=== PATIENT | female | born 1960 | race Caucasian/White ===

== ENCOUNTER → 2017-07-27 | Outpatient (CLI) | payer BC ==
--- NOTE | 2017-07-28 14:35 | XR ---
EXAMINATION TYPE: XR shoulder complete RT DATE OF EXAM: 07/27/2017 CLINICAL HISTORY: Right shoulder pain TECHNIQUE: Three views of the right shoulder are obtained. COMPARISON: None. FINDINGS: There is no acute fracture/dislocation evident in the right shoulder. Moderate acromioclav icular arthropathy is seen as marginal osteophytes and capsular hypertrophy. Mild glenohumeral arthro markus is also seen as joint space narrowing and small marginal osteophytes. The visualized ribs are intact and unremarkable. Visualized right lung is well aerated. IMPRESSION: 1. There is no acute fracture or dislocation in the right shoulder. 2. Moderate acromioclavicular arthropathy and mild glenohumeral arthropathy.
== END | disposition home or self-care (01) ==
LOC: RADXRYALE 09:58
PROVIDERS: ATTEND Physician Assistant Medical
DX: M12.9 Arthropathy, unspecified (principal)

== ENCOUNTER → 2019-11-04 | Outpatient (CLI) | payer BC ==
--- NOTE | 2019-11-04 14:50 | XR ---
EXAMINATION TYPE: XR knee complete RT DATE OF EXAM: 11/04/2019 CLINICAL HISTORY: pain TECHNIQUE: Three views of the right knee are obtained. COMPARISON: None. FINDINGS: There is no acute fracture/dislocation. The tri-compartment joint spaces appear within no rmal limits. The overlying soft tissue appears unremarkable. IMPRESSION: There is no acute fracture or dislocation.ICD 10 NO FRACTURE, INITIAL EVALUATION
== END | disposition home or self-care (01) ==
LOC: RADXRYALE 14:18
PROVIDERS: ATTEND Physician Assistant Medical
DX: M25.561 Pain in right knee (principal)

== ENCOUNTER → 2020-01-30 | Outpatient (CLI) | payer BC ==
--- NOTE | 2020-01-31 15:04 | MM ---
Reason for exam: screening (asymptomatic). Last mammogram was performed 1 year and 1 month ago. History: Patient is postmenopausal. Took hormonal contraceptives for 2 years. Physical Findings: A clinical breast exam by your physician is recommended on an annual basis and results should be correlated with mammographic findings. MG 3D Screening Mammo W/Cad Bilateral CC and MLO view(s) were taken. Prior study comparison: January 02, 2019, bilateral MG 3d screening mammo w/cad. February 16, 2016, bilateral MG screening mammo w CAD. The breast tissue is heterogeneously dense. This may lower the sensitivity of mammography. No significant changes when compared with prior studies. ASSESSMENT: Benign, BI-RAD 2 RECOMMENDATION: Routine screening mammogram of both breasts in 1 year.
== END | disposition home or self-care (01) ==
LOC: RADMAMWWP 08:01
PROVIDERS: ATTEND Family Medicine
DX: Z12.31 Encounter for screening mammogram for malignant neoplasm of breast (principal)
CPT/HCPCS: 77063; 77067

== ENCOUNTER → 2020-02-04 | Outpatient (CLI) | payer BC ==
--- NOTE | 2020-02-04 15:10 | EST ---
EXERCISE STRESS AGE: 59 SEX: F HT: 65" WT: 220 PROTOCOL: Carmelo STAGE: 3 DURATION OF EXERCISE: 8:15 HEART RATE REST: 78 BLOOD PRESSURE REST: 138/91 MAXIMUM HEART RATE ACHIEVED: 155 MAXIMUM BLOOD PRESSURE: 162/85 85% MPHR: 138 100% MPHR: 162 METS: 9.9 INDICATIONS: History of abnormal ECG. CLINICAL INFORMATION: Baseline heart rate 78 beats per minute. Baseline blood pressure 138/91 mmHg. Baseline 12-lead ECG shows sinus rhythm, normal VR, incomplete right bundle branch block pattern with T-wave inversions in V1 through V3. The patient exercised on a Carmelo protocol for 8 minutes 15 seconds achieving a peak heart rate of 150 beats per minute. Peak blood pressure 162/85 mmHg. She was short of breath by peak exercise. Occasional PVCs were noted. Downsloping ST depression of 2 mm was noted. Occasional PVCs were noted. IMPRESSION: 1. Abnormal stress test with associated shortness of breath. 2. Downsloping ST depression of up to 2 mm during peak exercise. MMODL / IJN: [id number] /
== END | disposition home or self-care (01) ==
LOC: RADNMMAIN 08:28
PROVIDERS: ATTEND Family Medicine
DX: R94.31 Abnormal electrocardiogram [ECG] [EKG] (principal); E78.2 Mixed hyperlipidemia; E66.9 Obesity, unspecified
CPT/HCPCS: 93017

== ENCOUNTER → 2021-04-28 | Outpatient (CLI) | payer BC ==
[2021-04-28 08:13] VITALS: BP 150/86; PULSE 87; RESP 18; TEMP 98.1
--- NOTE | 2021-04-28 08:53 | P.HPOB ---
History of Present Illness H&P Date: 04/28/21 Chief Complaint: The patient is here for her routine gynecologic exam and ma mmogram. This is a 60-year-old with an LMP of 2017. The patient is without gynecologic complaints and denies any postmenopausal bleeding. Review of Systems She has gained about 9 pounds over the past 2 years. She states more recently she has lost about 8 pounds. She denies respiratory, cardiac, or GI problems. 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 History of Any Multi-Drug Resistant Organisms: None Reported Additional Past Surgical History / Comment(s): Colonoscopy 2011(next due in 10 yrs) Past Psychological History: No Psychological Hx Reported Smoking Status: Former smoker Past Alcohol Use History: Occasional (About 10 per week) Additional Past Alcohol Use History / Comment(s): Quit smoking in 1987. 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 - Past Family History Mother Family Medical History: Cancer Additional Family Medical History / Comment(s): Lung cancer. Father Family Medical History: CVA/TIA, Diabetes Mellitus Medications and Allergies Home Medications Medication Instructions Recorded Confirmed Type Cholecalciferol [Vitamin D3 (25 25 mcg PO DAILY 04/28/21 04/28/21 History Mcg = 1000 Iu)] Allergies Allergy/AdvReac Type Severity Reaction Status Date / Time No Known Allergies Allergy Unverified 04/28/21 08:06 Exam Vital Signs Temp Pulse Resp BP Pulse Ox 04/28/21 08:07 98.1 F 87 18 150/86 97 Intake and Output 04/27/21 04/28/21 04/28/21 22:59 06:59 14:59 Other: Weight 103.419 kg Height 5 feet 5 inches, weight 228 pounds, BMI 37.9. This is a well-developed well-nourished heavyset white female who is alert and oriented times 3 in no acute distress. HEENT: Within normal limits. NECK: Supple without mass or thyromegaly. CHEST AND LUNGS: Clear to auscultation. HEART: Regular rate and rhythm. BREASTS: Are without mass or discharge. AXILLARY EXAM: Negative for adenopathy. BACK: Negative for CVA tenderness. ABDOMEN: Soft, nontender, without palpable masses. PELVIC EXAM: Normal external genitalia with mild atrophy. Cervix and vagina appear normal with mild atrophy. There is no unusual discharge. There is no evidence of prolapse. The uterus is midposition, nongravid size and nontender. There are no palpable adnexal masses or tenderness. Bimanual examination is somewhat limited secondary to her size. RECTAL EXAM: Rectovaginal exam is negative for mass or tenderness and is negative for occult blood. EXTREMITIES: Nontender. IMPRESSION: 1. 60-year-old menopausal female with normal gynecologic exam. 2. Elevated blood pressure. PLAN: 1. Pap smear cotest was performed. 2. Self breast awareness was discussed with the patient. We have also discussed symptoms associated with inflammatory breast cancer. 3. Screening mammogram will be done today. 4. Her blood pressure was discussed and I recommended that she check her own blood pressure on a daily basis. She will follow up with her PCP for blood pressure elevations. 5. Osteoporosis prevention was discussed. I have stressed the importance of adequate calcium, vitamin D and regular exercise. Recommended amounts of calcium and vitamin D were also discussed. I have recommended bone density testing at age 61. She can do this at her next annual well woman visit. 6. She was advised to return in one year for her annual well woman exam.
--- NOTE | 2021-04-29 11:37 | MM ---
Reason for exam: screening (asymptomatic). Last mammogram was performed 1 year and 3 months ago. History: Patient is postmenopausal. Took hormonal contraceptives for 2 years. Physical Findings: A clinical breast exam by your physician is recommended on an annual basis and results should be correlated with mammographic findings. MG 3D Screening Mammo W/Cad Bilateral CC and MLO view(s) were taken. XCCL view(s) were taken of the right breast. Prior study comparison: January 30, 2020, bilateral MG 3d screening mammo w/cad. January 02, 2019, bilateral MG 3d screening mammo w/cad. The breast tissue is heterogeneously dense. This may lower the sensitivity of mammography. There is no discrete abnormality. No significant changes when compared with prior studies. ASSESSMENT: Negative, BI-RAD 1 RECOMMENDATION: Routine screening mammogram of both breasts in 1 year.
== END | disposition home or self-care (01) ==
LOC: RADMAMWWP 07:52
PROVIDERS: ATTEND Obstetrics & Gynecology
DX: Z12.31 Encounter for screening mammogram for malignant neoplasm of breast (principal); Z78.0 Asymptomatic menopausal state
CPT/HCPCS: 77063; 77067

== ENCOUNTER → 2022-05-18 | Outpatient (CLI) | payer BC ==
[2022-05-18 08:01] VITALS: BP 144/85; PULSE 78; RESP 17; TEMP 97.9
--- NOTE | 2022-05-18 08:29 | P.HPOB ---
History of Present Illness H&P Date: 05/18/22 Chief Complaint: The patient is here for her routine gynecologic exam and ma mmogram. This is a 61-year-old with an LMP of 2017. The patient is without gynecologic complaints and denies any postmenopausal bleeding. Review of Systems The patient's weight has been stable over the last year. She denies respiratory, cardiac, or G.I. problems. 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 History of Any Multi-Drug Resistant Organisms: None Reported Additional Past Surgical History / Comment(s): Colonoscopy 2011(next due in 10 yrs) Past Psychological History: No Psychological Hx Reported Smoking Status: Former smoker Past Alcohol Use History: Occasional (About 12 per week) Additional Past Alcohol Use History / Comment(s): Quit smoking in 1987. 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 - Past Family History Mother Family Medical History: Cancer Additional Family Medical History / Comment(s): Lung cancer. Father Family Medical History: CVA/TIA, Diabetes Mellitus Medications and Allergies Home Medications Medication Instructions Recorded Confirmed Type Cholecalciferol [Vitamin D3 (25 25 mcg PO DAILY 04/28/21 05/18/22 History Mcg = 1000 Iu)] Allergies Allergy/AdvReac Type Severity Reaction Status Date / Time No Known Allergies Allergy Unverified 05/18/22 07:56 Exam Vital Signs Temp Pulse Resp BP Pulse Ox 05/18/22 07:56 97.9 F 78 17 144/85 99 Intake and Output 05/17/22 05/18/22 05/18/22 22:59 06:59 14:59 Other: Weight 102.965 kg Height 5 feet 4 inches, weight 227 pounds, BMI 39.0. This is a well-developed well-nourished heavyset white female who is alert and oriented times 3 in no acute distress. HEENT: Within normal limits. NECK: Supple without mass or thyromegaly. CHEST AND LUNGS: Clear to auscultation. HEART: Regular rate and rhythm. BREASTS: Are without mass or discharge. AXILLARY EXAM: Negative for adenopathy. BACK: Negative for CVA tenderness. ABDOMEN: Soft, obese, nontender, without palpable masses. PELVIC EXAM: Normal external genitalia with mild atrophy. Cervix and vagina appear normal with mild atrophy. There is no unusual discharge. There is no evidence of prolapse. The uterus is midposition, nongravid size and nontender. There are no palpable adnexal masses or tenderness. Bimanual examination is somewhat limited secondary to her size. RECTAL EXAM: Rectovaginal exam is negative for mass or tenderness and is negative for occult blood. EXTREMITIES: Nontender. IMPRESSION: 1. 61-year-old menopausal female with normal gynecologic exam. PLAN: 1. Pap smear was deferred since she had a negative Pap smear cotest on 04/28/2021. 2. Self breast awareness was discussed with the patient. We have also discusse d symptoms associated with inflammatory breast cancer. 3. Screening mammogram will be done today. 4. Osteoporosis prevention was discussed. I have stressed the importance of adequate calcium, vitamin D and regular exercise. Recommended amounts of calcium and vitamin D were also discussed. It has been several years since her last bone density test. She believes it was normal. Bone density testing will be done today. 5. She will be due for her colonoscopy since her last one was about 10 years ago. She states she has been discussing this with her PCP and they will help her to schedule it. 6. She has completed her Covid vaccination series and did receive a booster. 7. She was advised to return in one year for her annual well woman exam.
--- NOTE | 2022-05-18 11:24 | BD ---
EXAMINATION TYPE: Axial Bone Density DATE OF EXAM: 05/18/2022 COMPARISON: 03/31/2009 CLINICAL HISTORY: 61 years old Female. ICD-10 CODE: Z78.0 POST MENOPAUSAL Height: 64.5 Weight: 222 FRAX RISK QUESTIONS: Alcohol (3 or more units per day): YES Family History (Parent hip fracture): NO History of Fracture in Adulthood: NO Secondary Osteoporosis: NO Rheumatoid Arthritis: NO Current Tobacco Use: NO RISK FACTORS HISTORY OF: Active: YES Diet low in dairy products/other sources of calcium: NO Postmenopausal woman: YES MEDICATIONS: Additional Medications: NO Additional History: NO EXAM MEASUREMENTS: Bone mineral densitometry was performed using the [employer] System. Bone mineral density as measured about the Lumbar spine is: ----- L1-L4(G/cm2): 1.532 T Score Values are as follows: ----- L1: 2.5 ----- L2: 2.5 ----- L3: 3.6 ----- L4: 2.9 ----- L1-L4: 2.9 Bone mineral density has: Increased 8.2% since study of: 03/31/2009 Bone mineral density about the R hip (g/cm2): 1.162 Bone mineral density about the L hip (g/cm2): 1.203 T Score values are as follows: -----R Neck: 0.7 -----L Neck: 0.3 -----R Total: 1.2 -----L Total: 1.5 Bone mineral density has: Decreased -8.5% since study of: 03/31/2009 FRAX%s: The graph provided illustrates a 5.5% chance for a major osteoporotic fx and a 0.1% chance fo r the hips probability for fx in 10 years time. IMPRESSION: Normal (Values between +1 and -1 indicate normal bone mass). Consider repeating this study in 5 year s or sooner if there is some new clinical indication. NOTE: T-SCORE=SD OF THE YOUNG ADULT MEAN.
--- NOTE | 2022-05-19 18:27 | MM ---
Reason for Exam: Screening (asymptomatic). Last mammogram was performed 1 year(s) and 1 month(s) ago. Patient History: Menarche at age 17. First Full-Term at age 27. Postmenopausal. Patient used Hormonal Contraceptives for 2 years. Risk Values: Evelyn 5 year model risk: 1.5%. NCI Lifetime model risk: 7.4%. Prior Study Comparison: 01/02/2019 Bilateral Screening Mammogram, [facility]. 01/30/2020 Bilateral Screening Mammogram, [facility]. 04/28/2021 Bilateral Screening Mammogram, [facility]. Tissue Density: The breast tissue is heterogeneously dense. This may lower the sensitivity of mammography. Findings: Analyzed By CAD. There is no suspicious group of microcalcifications or new suspicious mass in either breast. Overall Assessment: Negative, BI-RAD 1 Management: Screening Mammogram of both breasts in 1 year. 1. Patient should continue monthly self breast exams. 2. A clinical breast exam by your physician is recommended on an annual basis. 3. This exam should not preclude additional follow-up of suspicious palpable abnormalities. Electronically signed and approved by: César Bryan M.D. Radiologist
== END ==
LOC: WWCWWP 07:42
PROVIDERS: ATTEND Obstetrics & Gynecology
DX: Z01.419 Encounter for gynecological examination (general) (routine) without abnormal findings (principal); Z12.31 Encounter for screening mammogram for malignant neoplasm of breast; Z78.0 Asymptomatic menopausal state; Z87.891 Personal history of nicotine dependence
CPT/HCPCS: 77063; 77067; 77080

== ENCOUNTER → 2023-06-02 | Outpatient (CLI) | payer BC ==
--- NOTE | 2023-06-02 11:04 | XR ---
EXAMINATION TYPE: XR finger LT DATE OF EXAM: 06/02/2023 10:31 AM CLINICAL INDICATION:Female, 62 years old with history of [id number] LT FINGER PAIN; [facility] COMPARISON: None TECHNIQUE: XR finger LT Frontal, lateral views were obtained. FINDINGS: Normal alignment of the visualized joints. No acute osseous pathology is identified. No e vidence of soft tissue swelling. IMPRESSION: No acute osseous pathology.
== END | disposition home or self-care (01) ==
LOC: RADXRYALE 10:16
PROVIDERS: ATTEND Physician Assistant Medical
DX: M79.645 Pain in left finger(s) (principal)

== ENCOUNTER → 2023-06-07 | Outpatient (CLI) | payer BC ==
[2023-06-07 08:20] VITALS: BP 129/78; PULSE 74; RESP 18; TEMP 98.3
--- NOTE | 2023-06-07 08:40 | P.HPOB ---
History of Present Illness H&P Date: 06/07/23 Chief Complaint: The patient is here for her routine gynecologic exam and ma mmogram. This is a 63-year-old with an LMP of 2017. The patient is without gynecologic complaints. Review of Systems Weight has been stable. She denies respiratory or cardiac problems. GI: She states she noticed a small amount of blood after wiping frequently this morning. She has had this issue when she eats Maced[place] sausage. 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 History of Any Multi-Drug Resistant Organisms: None Reported Additional Past Surgical History / Comment(s): Colonoscopy 2011(next due in 10 yrs) Past Psychological History: No Psychological Hx Reported Smoking Status: Former smoker Past Alcohol Use History: Occasional (12 drinks per week.) Additional Past Alcohol Use History / Comment(s): Quit smoking in 1987. 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 - Past Family History Mother Family Medical History: Cancer Additional Family Medical History / Comment(s): Lung cancer. Father Family Medical History: CVA/TIA, Diabetes Mellitus Medications and Allergies Home Medications Medication Instructions Recorded Confirmed Type Cholecalciferol [Vitamin D3 (25 25 mcg PO DAILY 04/28/21 05/18/22 History Mcg = 1000 Iu)] Ibuprofen [Motrin Ib] 200 mg PO Q8H PRN 06/07/23 06/07/23 History Losartan [Cozaar] 50 mg PO BID 06/07/23 06/07/23 History Allergies Allergy/AdvReac Type Severity Reaction Status Date / Time No Known Allergies Allergy Unverified 06/07/23 07:56 Exam Vital Signs Temp Pulse Resp BP Pulse Ox 06/07/23 07:56 98.3 F 74 18 129/78 98 Intake and Output 06/06/23 06/07/23 06/07/23 22:59 06:59 14:59 Other: Weight 103.419 kg Height 5 feet 5-1/2 inches, weight 228 pounds, BMI 37.4. This is a well-developed well-nourished white female who is alert and oriented times 3 in no acute distress. HEENT: Within normal limits. NECK: Supple without mass or thyromegaly. CHEST AND LUNGS: Clear to auscultation. HEART: Regular rate and rhythm. BREASTS: Are without mass or discharge. AXILLARY EXAM: Negative for adenopathy. BACK: Negative for CVA tenderness. ABDOMEN: Soft, obese, nontender, without palpable masses. PELVIC EXAM: Normal external genitalia with mild atrophy. Cervix and vagina appear normal mild atrophy. There is no unusual discharge. There is no evidence of prolapse. The uterus is midposition, nongravid size and nontender. There are no palpable adnexal masses or tenderness. Bimanual examination is somewhat limited secondary to her size. RECTAL EXAM: Rectovaginal exam is negative for mass or tenderness and is positive for occult blood. EXTREMITIES: Nontender. IMPRESSION: 1. 63-year-old menopausal female with normal gynecologic exam. 2. Hemoccult positive stool on exam today. The patient states she noticed some blood when wiping and attributes this to frequent wiping after eating [place] sausage. PLAN: 1. Pap smear was deferred since she had a negative Pap smear cotest on 04/28/2021. 2. Self breast awareness was discussed with the patient. We have also disc ussed symptoms associated with inflammatory breast cancer. 3. Screening mammogram will be done today. 4. Osteoporosis prevention was discussed. I have stressed the importance of adequate calcium, vitamin D and regular exercise. Recommended amounts of calcium and vitamin D were also discussed. She had a normal bone density test on 05/18/2022 we'll plan on repeating it in approximately 2028. 5. The patient states she had a recent negative Cologuard test this year. We will plan on having her repeat the fecal occult blood test on her stool after her bowel movements have gone back to being regular and she has not been wiping as frequently. A fecal occult blood test kit was given to the patient as well as a lab slip for this. She states she will do this. She understands if it is still positive I will recommend a colonoscopy. 6. She was advised to return in one year for her annual well woman exam.
--- NOTE | 2023-06-08 12:37 | MM ---
Reason for Exam: Screening (asymptomatic). Last mammogram was performed 1 year(s) and 1 month(s) ago. Patient History: Menarche at age 17. First Full-Term at age 27. Postmenopausal. Patient used Hormonal Contraceptives for 2 years. Risk Values: Evelyn 5 year model risk: 1.5%. NCI Lifetime model risk: 7.0%. Prior Study Comparison: 01/30/2020 Bilateral Screening Mammogram, [facility]. 04/28/2021 Bilateral Screening Mammogram, [facility]. 05/18/2022 Bilateral MG 3D screening mammo w/cad, [facility]. Tissue Density: The breast tissue is heterogeneously dense. This may lower the sensitivity of mammography. Findings: Analyzed By CAD. There is no suspicious group of microcalcifications or new suspicious mass in either breast. Overall Assessment: Negative, BI-RAD 1 Management: Screening Mammogram of both breasts in 1 year. . Patient should continue monthly self-breast exams. A clinical breast exam by your physician is recommended on an annual basis. This exam should not preclude additional follow-up of suspicious palpable abnormalities. Note on Evelyn scores and lifetime risk: 1. A Evelyn score greater than 3% is considered moderate risk. If this is the case, consider specialist referral to assess eligibility for a risk reducing agent. 2. If overall lifetime risk for the development of breast cancer is 20% or higher, the patient may qualify for future screening with alternating mammogram and breast MRI. Electronically signed and approved by: Ravinder Edwards M.D. Radiologis
== END ==
LOC: WWCWWP 07:44
PROVIDERS: ATTEND Obstetrics & Gynecology
DX: Z12.31 Encounter for screening mammogram for malignant neoplasm of breast (principal); I10 Essential (primary) hypertension; R19.5 Other fecal abnormalities; Z87.891 Personal history of nicotine dependence; Z78.0 Asymptomatic menopausal state; Z79.899 Other long term (current) drug therapy
CPT/HCPCS: 77063; 77067

== ENCOUNTER → 2023-06-12 | Outpatient (CLI) | payer BC | END | disposition home or self-care (01) | LOC: LABWHC1 08:42 | PROVIDERS: ATTEND Obstetrics & Gynecology | DX: R19.5 Other fecal abnormalities (principal) | CPT/HCPCS: 36415; 82272 ==

== ENCOUNTER → 2023-12-07 | Outpatient (CLI) | payer BC ==
--- NOTE | 2023-12-07 14:07 | XR ---
EXAMINATION TYPE: XR ankle complete RT DATE OF EXAM: 12/07/2023 1:34 PM CLINICAL INDICATION:Female, 63 years old with history of [id number] ACHILLES TENDINITIS,FLAT FOOT; Y CH COMPARISON: None TECHNIQUE: XR ankle complete RT; ankle is imaged in frontal, lateral and oblique projections. FINDINGS: There is no evidence of acute osseous pathology. No evidence of subluxation or dislocation. Kager's fat pad is intact. No radiopaque foreign bodies are identified. Calcaneal Achilles enthesophyte. Calc aneal plantar spurring is present. Multifocal degeneration changes throughout the joints of the foot with osteophyte formation and joint space narrowing. IMPRESSION: 1. No evidence of acute fracture. 2. Multifocal degeneration changes throughout the joints of the foot.
== END | disposition home or self-care (01) ==
LOC: RADXRYALE 13:23
PROVIDERS: ATTEND Physician Assistant Medical
DX: M76.61 Achilles tendinitis, right leg (principal); M21.41 Flat foot [pes planus] (acquired), right foot

== ENCOUNTER → 2024-06-11 | Outpatient (CLI) | payer BC ==
[2024-06-11 09:50] VITALS: BP 133/85; PULSE 76; RESP 16; TEMP 98.3
--- NOTE | 2024-06-11 10:18 | P.HPOB ---
History of Present Illness H&P Date: 06/11/24 Chief Complaint: The patient is here for her routine gynecologic exam and ma mmogram. This is a 64-year-old G2, P2 with an LMP of 2017. The patient is without gynecologic complaints. Review of Systems The patient has gained 7 pounds over the last year. She denies respiratory, cardiac, or G.I. problems. Past Medical History Past Medical History: Hypertension Additional Past Medical History / Comment(s): Foot spur. 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 History of Any Multi-Drug Resistant Organisms: None Reported Additional Past Surgical History / Comment(s): Colonoscopy 2011(now using Cologuard testing) Past Psychological History: No Psychological Hx Reported Smoking Status: Former smoker Past Alcohol Use History: Occasional (6-10 drinks per week.) Additional Past Alcohol Use History / Comment(s): Quit smoking in 1987. 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 - Past Family History Mother Family Medical History: Cancer Additional Family Medical History / Comment(s): Lung cancer. Father Family Medical History: CVA/TIA, Diabetes Mellitus Medications and Allergies Home Medications Medication Instructions Recorded Confirmed Type Losartan [Cozaar] 50 mg PO BID 06/07/23 06/11/24 History Allergies Allergy/AdvReac Type Severity Reaction Status Date / Time No Known Allergies Allergy Unverified 06/11/24 09:43 Exam Vital Signs Temp Pulse Resp BP Pulse Ox 06/11/24 09:44 98.3 F 76 16 133/85 97 Intake and Output 06/10/24 06/11/24 06/11/24 22:59 06:59 14:59 Other: Weight 106.594 kg Height 5 feet 5 inches, weight 235 pounds, BMI 39.1. This is a well-developed well-nourished heavyset white female who is alert and oriented times 3 in no acute distress. HEENT: Within normal limits. NECK: Supple without mass or thyromegaly. CHEST AND LUNGS: Clear to auscultation. HEART: Regular rate and rhythm. BREASTS: Are without mass or discharge. AXILLARY EXAM: Negative for adenopathy. BACK: Negative for CVA tenderness. ABDOMEN: Soft, obese, nontender, without palpable masses. PELVIC EXAM: Normal external genitalia with mild atrophy. Cervix and vagina appear normal with mild atrophy. There is no unusual discharge. There is no evidence of prolapse. The uterus is midposition, nongravid size and nontender. There are no palpable adnexal masses or tenderness. Bimanual examination is somewhat limited secondary to her size. RECTAL EXAM: Rectovaginal exam is negative for mass or tenderness and is negative for occult blood. EXTREMITIES: Nontender. IMPRESSION: 1. 64-year-old menopausal female with normal gynecologic exam. PLAN: 1. Pap smear was deferred since she had a negative Pap smear cotest on 04/28/2021. 2. Self breast awareness was discussed with the patient. We have also discussed symptoms associated with inflammatory breast cancer. 3. Screening mammogram will be done today. 4. Osteoporosis prevention was discussed. We will plan on repeating the bone density test in approximately 2027 since she had a normal, above average, bone density test in 2021. 5. She was advised to return in one year for her annual well woman exam.
== END ==
LOC: WWCWWP 09:17
PROVIDERS: ATTEND Obstetrics & Gynecology
DX: Z01.419 Encounter for gynecological examination (general) (routine) without abnormal findings (principal); Z12.31 Encounter for screening mammogram for malignant neoplasm of breast; Z87.891 Personal history of nicotine dependence
CPT/HCPCS: 77063; 77067

== ENCOUNTER 2024-06-21 10:19 | Day surgery (SDC) | payer BC ==
[2024-06-20 09:00] VITALS: BMI 38.2
[2024-06-21] MEDS: ONDANSETRON 4 MG/2 ML VIAL IVP ONE (11:52)
[2024-06-21] MEDS: LACTATED RINGERS 1,000 ML IV SCH (11:52)
[2024-06-21] MEDS: DEXAMETHASONE SOD PHOSPHATE 4 MG/ML 1 ML VIAL IV ONE (11:53)
[2024-06-21] MEDS: IV FLUID CONTINUATION 1,000 ML IV ONE (11:56)
[2024-06-21] MEDS: MIDAZOLAM 2 MG/2 ML VIAL IV PRN (12:59)
[2024-06-21] MEDS: fentaNYL (PF) 50 MCG/ML 2 ML AMP IVP STA (13:00)
[2024-06-21] MEDS ORDERED: fentaNYL (PF) 50 MCG/ML 2 ML AMP ONE (14:27)
[2024-06-21] MEDS ORDERED: PROPOFOL 10 MG/ML 20 ML VIAL IV ONE (14:27)
[2024-06-21] MEDS ORDERED: ROPIVACAINE 5 MG/ML 30 ML VIAL ONE (14:27)
[2024-06-21] MEDS ORDERED: SUCCINYLCHOLINE CHLORIDE 200 MG/10 ML VIAL IV ONE (14:27)
[2024-06-21] MEDS ORDERED: LIDOCAINE 1% INJ 10MG/ML (20 ML MDV) ONE (14:27)
[2024-06-21] MEDS ORDERED: PHENYLEPHRINE-0.9% NACL SYG 1,000 MCG/10 ML SYRINGE ONE (14:27)
[2024-06-21] MEDS ORDERED: SODIUM CHLORIDE 0.9% (PF) 10 ML VIAL ONE (14:27)
[2024-06-21] MEDS ORDERED: NEOSTIGMINE 1 MG/ML 10 ML VIAL ONE (14:27)
[2024-06-21] MEDS ORDERED: HYDROmorphone (PF) 1 MG/ML ONE (14:27)
[2024-06-21] MEDS ORDERED: MIDAZOLAM 2 MG/2 ML VIAL ONE (14:27)
[2024-06-21] MEDS ORDERED: ROCURONIUM 10 MG/ML (5 ML VIAL) IV ONE (14:27)
[2024-06-21] MEDS ORDERED: GLYCOPYRROLATE 0.2 MG/ML 2 ML VIAL ONE (14:27)
[2024-06-21] MEDS: ceFAZolin 1,000 MG in SODIUM CHLORIDE 0.9% 1,000 ML IRRIGATION ONE (14:28)
--- NOTE | 2024-06-21 14:52 | P.ANPRN ---
Procedure Note - Anesthesia - Nerve Block Performed Right Popliteal Single Time Out Performed: Yes (1259) Date of Procedure: 06/21/24 Procedure Start Time: 13:00 Procedure Stop Time: 13:04 Location of Patient: PreOp Indication: Acute Post-Operative Pain, Requested by Surgeon Specifically requested for management of pain by DrDonald: Bob Lea Sedation Type: Sedate with meaningful contact maintained Preparation: Sterile Prep Position: Supine Catheter: None Needle Types: Pajunk Needle Gauge: 21 Ultrasound used to visualize needle placement: Yes Ultrasound used to observe medication spread: Yes Injectate: 0.5% Ropivacaine (see comment for volume) (15cc+10cc nacl pf) Blood Aspirated: No Pain Paresthesia on Injection Noted: No Resistance on Injection: Normal Image Stored and Saved: Yes Events: Uneventful and Well Tolerated
--- NOTE | 2024-06-21 14:53 | P.ANPRN ---
Procedure Note - Anesthesia - Nerve Block Performed Right Adductor Canal Single Time Out Performed: Yes (1259) Date of Procedure: 06/21/24 Procedure Start Time: 13:05 Procedure Stop Time: 13:08 Location of Patient: PreOp Indication: Acute Post-Operative Pain, Requested by Surgeon Specifically requested for management of pain by DrDonald: Bob Lea Sedation Type: Sedate with meaningful contact maintained Preparation: Sterile Prep Position: Supine Catheter: None Needle Types: Pajunk Needle Gauge: 21 Ultrasound used to visualize needle placement: Yes Ultrasound used to observe medication spread: Yes Injectate: 0.5% Ropivacaine (see comment for volume) (15cc+10cc nacl pf) Blood Aspirated: No Pain Paresthesia on Injection Noted: No Resistance on Injection: Normal Image Stored and Saved: Yes Events: Uneventful and Well Tolerated
[2024-06-21 16:16] VITALS: TEMP 97
--- NOTE | 2024-06-21 16:24 | P.OP ---
Date of Procedure: 06/21/24 Preoperative Diagnosis: Spontaneous rupture right Achilles tendon Postoperative Diagnosis: Same Procedure(s) Performed: 1. Secondary repair of right Achilles tendon 2. Flexor hallucis longus tendon transfer right ankle 3. Gastroc recession right leg Implants: Arthrex Achilles speed bridge Arthrex interference screw for flexor hallucis longus tendon transfer Anesthesia: SHANTE Surgeon: Bob Lea Estimated Blood Loss (ml): 50 Pathology: none sent Condition: stable Disposition: PACU Description of Procedure: Prior to the patient being brought to the op room, anesthesia administered a nerve block on the operative lower extremity. Then the patient was brought into the operative room where a timeout was taken to confirm correct patient identifiers correct laterality of surgery and correct procedure. Once all staff in the room were in agreement the timeout, the patient was induced and placed under general anesthesia. The patient was rolled on the operating table in the prone position. Appropriate padding but was beneath the face, thoracic area, and any bony prominences. Once patient positioning was satisfactory, a well- padded tourniquet was placed on the operative thigh. Then the operative leg was prepped and draped usual manner. The leg was exsanguinated, the knee flexed and then the tourniquet inflated to 250 mmHg. Attention was directed to the Achilles insertion on the posterior heel, for a linear incision was made medial to the Achilles tendon and ending just distal to the insertion point. The incision was deepened down to the subcutaneous tissue careful to identify, void, and retracting neurovascular structures and cauterize any bleeding vessels. Dissection was carried down to the peritenon which was incised to expose the tendon. The proximal stump of the tendon was visualized immediately with surrounding hematoma. The retraction of the tendon was approximately 3 cm from the insertion point. The rest of the area was exposed to allow for tendon repair. The proximal stump was debrided of any abnormal tissue. Any soft tissue was stripped from the posterior aspect of the calcaneus at the Achilles insertion. Then a rotary bur was used to remove the calcification at the insertion as well as the posterior superior body for the reattachment of the tendon. The wound was then thoroughly irrigated with antibiotic saline. The deep fascia anterior to the Achilles tendon was incised and bluntly dissected down to the muscle of the flexor hallucis longus. The tendon was identified both visually coming off of the muscle as well as with range of motion of the great toe. The tendon was followed into the medial compartment where it was transected and delivered into the surgical field. A whipstitch was then applied to the distal end of the tendon. Then a Krakw stitch was performed in the distal aspect of the Achilles stump. Then attention was directed to the posterior calf area where a long linear midline incision was made over the gastroc aponeurosis. The incision was deepened down to the sub cutaneous tissue careful to identify, avoid, and retract any neurovascular structures and cauterize any bleeding vessels. The sural nerve and accompanying vein were identified and carefully retracted. The fascia over the gastroc aponeurosis was opened and bluntly dissected with a finger to from the overlying fascia. With the aponeurosis mobilized a large V to Y gastroc recession was performed. Once completed tension was placed on the Krakw stitch and the stump of the prior small aspect of the Achilles tendon, and the tendon was able to be brought back down to the original insertion point. Drill holes for the 3.9 mm swivel locks were made distal to the insertion, 1 medial and 1 lateral. The holes were tapped for preparation of the insertion of the anchors later. A guidewire was then placed at the superior aspect of the calcaneus body, just anterior to the insertion of the Achilles tendon. This guidewire was angled plantarly and distally to avoid the tuberosity of the calcaneus. The appropriate size reamer was placed over the wire and reamed through the entirety of the calcaneus along the guidewire. The sutures from the whipstitch on the flexor hallucis longus tendon were passed through the guidewire and then pulled out the plantar aspect of the foot. With the ankle slightly plantarflexed the sutures were pulled which brought the tendon into the bone tunnel. With constant tension on the suture as well as the graft in 8 mm interference screw was inserted into the drill hole and advanced until locked the tendon within the calcaneus. The ankle was taken through range of motion which showed that there was firm attachment of the tendon within the drill hole with no movement. Drill holes for the combination knotless fiber tack and speed bridge suture were made superior to the insertion along the posterior aspect of the body of the calcaneus. With the drill guide left in place, the anchor was inserted and impacted down to proper depth. The crown perforator operator and drill guide removed and the suture set aside. With constant tension on the Krakw sutures, the fiber tape suture was passed first through the proximal end of the tendon and set aside than the ripstop sutures were passed just distal to the speed bridge suture through the tendon. The suture for the fiber tack anchor was then tightened which pulled the tendon against the posterior body of the calcaneus. It was a very firm and secure attachment point. 1 arm of the speed bridge suture was passed straight distal to the corresponding anchor hole in the other arm was crossed to the opposite deformed this speed bridge pattern. Also the Krakw stitch ends were incorporated into the swivel lock hole to further increase the repair strength. The sutures were tightened and then passed through the 3.9 mm swivel lock. Then the swivel lock was aligned with its corresponding drill hole and impacted into the hole and then the anchor advanced to lock the suture in place. This was done in the same way on the opposite side. Once completed the repair site was checked. The repair site was firm with no movement. All wounds were thoroughly irrigated with antibiotic saline. Deep and subcutaneous closure was done with 3-0 Monocryl. Skin closure was done with urban. An Arthrex jumpstart was placed over each incision. A sterile dry dressing is applied to the ankle. A bulky Levin wrap was placed on the leg and then a plaster posterior mold/sugar-tong splint was applied. The tourniquet was released and capillary refill returned all digits on the foot. The patient was then rolled b ack onto the supine position on the transfer table. Anesthesia was reversed and the patient was taken recovery with vital signs stable.
[2024-06-21] MEDS: HYDROmorphone 0.5 MG/0.5 ML SYRINGE IVP PRN (16:32)
[2024-06-21 17:20] VITALS: RESP 16
[2024-06-21] MEDS: SCOPOLAMINE 1 MG/72 HR PATCH TRANSDERM ONE (18:25)
[2024-06-21 18:59] VITALS: BP 118/81; PULSE 83
== END 2024-06-21 19:01 | disposition home or self-care (01) ==
LOC: OR 10:19
PROVIDERS: ATTEND Podiatrist
DX: S86.011A Strain of right Achilles tendon, initial encounter (principal); M71.571 Other bursitis, not elsewhere classified, right ankle and foot; M66.372 Spontaneous rupture of flexor tendons, left ankle and foot; I10 Essential (primary) hypertension; E11.9 Type 2 diabetes mellitus without complications; Z88.0 Allergy status to penicillin; Z79.899 Other long term (current) drug therapy; X58.XXXA Exposure to other specified factors, initial encounter
CPT/HCPCS: 64447; 64445; 27654; 27687; 27691; C1713; J2250; J0330; J1100; J2710; J0690 ×2; J2405; J2003; J3010; J1171 ×2; J2795; J2704; J2371; J1596